=== PATIENT | female | born 1985 | race Caucasian/White ===

== ENCOUNTER 2017-12-12 10:01 | Emergency (ER) | payer OTHER ==
[~2017-12-12] VITALS: Ht 157.5 cm; Wt 52.2 kg
[~2017-12-12 10:01] MED LIST: BACL10 PO; CITA20 PO; CLIN300 PO; HYDACE5 PO; HYDPAM25 PO; HYDR1TAB94 PO; IBUP600 PO; LISI5 PO; METPHE20 PO; METPHE20ER PO; MULVITMINE; NAPR500 PO; OLOP.1OPSO OS; ORTHOEVRA; RXCLIN PO; Strattera80 MG PO
== END 2017-12-12 11:20 | disposition home or self-care (01) ==
LOC: ER 10:01
DX: M25.562 Pain in left knee (principal); F17.200 Nicotine dependence, unspecified, uncomplicated; Z88.0 Allergy status to penicillin; Z88.1 Allergy status to other antibiotic agents; Z88.8 Allergy status to other drugs, medicaments and biological substances
CPT/HCPCS: 73564; 99283

== ENCOUNTER 2019-07-10 07:54 | Day surgery (SDC) | payer OTHER ==
[~2019-07-10] VITALS: Ht 154.9 cm; Wt 51.4 kg
[~2019-07-10 07:54] MED LIST changes: +ALBU90OI INH; +Flovent 44 mc10.6 GM INH; +Singulair10 MG PO
--- NOTE | 2019-07-10 08:50 | NUR ---
PT ADMITTED TO [facility]. AGREES WITH PLANNED SURGERY. LUNG SOUNDS CLEAR. C/O INTERMITTENT RIGHT SHOULDER PAIN.
--- NOTE | 2019-07-10 12:30 | NUR ---
STERI STRIPS AND DRESSING TO ABDOMEN REMAIN CDI. PT CHANGED SHERRI PAD. SCANT AMOUNT OF DARK BURGUNDY DRAINAGE NOTED. Patient up to Ambulate independently. Gait steady. Discharge instructions reviewed with patient. Patient verbalizes understanding. Copy given to patient to take home. Patient States Post-Procedure ride home has been arranged. Discharged via wheelchair to private car for ride home. ALL BELONINGS RETURNED TO PATIENT.
== END 2019-07-10 22:48 | disposition home or self-care (01) ==
LOC: ORSCMMR 07:54 → ORD 10:00 → ORSCMMR 10:00
PROVIDERS: Obstetrics & Gynecology
PROC: 0UT74ZZ Resection of Bilateral Fallopian Tubes, Percutaneous Endoscopic Approach (ICD-10-PCS; principal; 2019-07-10 10:00)
DX: Z30.2 Encounter for sterilization (principal); Q50.5 Embryonic cyst of broad ligament; I10 Essential (primary) hypertension; J45.909 Unspecified asthma, uncomplicated; F17.210 Nicotine dependence, cigarettes, uncomplicated; Z79.899 Other long term (current) drug therapy
CPT/HCPCS: 88302; J1100; J1885; J2250; J2370; J2405; J2704; J3010; J7120

== ENCOUNTER → 2019-11-16 | Outpatient (CLI) | payer OTHER | END | disposition home or self-care (01) | LOC: LAB SHORT 12:08 → LAB EV 12:08 | DX: R82.90 Unspecified abnormal findings in urine (principal) | CPT/HCPCS: 87086 ==

== ENCOUNTER 2021-02-05 21:09 | Emergency (ER) | payer OTHER ==
[~2021-02-05] VITALS: Ht 157.5 cm; Wt 49.0 kg
[2021-02-05] MEDS ORDERED: HYDR1TAB94 PO (21:44)
[2021-02-05] MEDS ORDERED: Silvadene20 GM TOP (21:44)
== END 2021-02-05 22:15 | disposition home or self-care (01) ==
LOC: ER 21:09
DX: T22.211A Burn of second degree of right forearm, initial encounter (principal); T31.0 Burns involving less than 10% of body surface; F17.200 Nicotine dependence, unspecified, uncomplicated; Z88.0 Allergy status to penicillin; Z88.8 Allergy status to other drugs, medicaments and biological substances; Z79.899 Other long term (current) drug therapy
CPT/HCPCS: 90471; 90714; 99282; A9270

== ENCOUNTER 2021-07-14 08:57 | Emergency (ER) | payer OTHER ==
[~2021-07-14] VITALS: Ht 157.5 cm; Wt 49.0 kg
[~2021-07-14 08:57] MED LIST changes: +Silvadene20 GM TOP
[2021-07-14] MEDS ORDERED: CATAPRES0.1 MG PO (09:33)
[2021-07-14] MEDS ORDERED: HYDCHL25 (09:33)
[2021-07-14] MEDS ORDERED: Norco 5-325 Ta1 EACH PO (11:01)
== END 2021-07-14 11:08 | disposition home or self-care (01) ==
LOC: ER 08:57
DX: S20.211A Contusion of right front wall of thorax, initial encounter (principal); I10 Essential (primary) hypertension; F17.210 Nicotine dependence, cigarettes, uncomplicated; Z88.0 Allergy status to penicillin; Z88.1 Allergy status to other antibiotic agents; W50.1XXA Accidental kick by another person, initial encounter
CPT/HCPCS: 71101; 99283-25; A9270

== ENCOUNTER 2023-10-30 16:05 | Emergency (ER) | payer OTHER ==
[~2023-10-30] VITALS: Ht 157.5 cm; Wt 50.8 kg
[~2023-10-30 16:05] MED LIST changes: +AMIL5 PO; +Acetaminophen650 M1 PO; +CATAPRES0.1 MG PO; +FOLI1 PO; +HYDCHL25; +LEVO T PO; +LEVO750 PO; +LOSA50 PO; +MAGNESIUM OXID500 MG PO; +MULVITA PO; +Norco 5-325 Ta1 EACH PO
[2023-10-30 16:15] VITALS: BP 164/113
[2023-10-30] MEDS ORDERED: Cephalexin Monohydrate 500 MG Cap PO ONE (17:35)
[2023-10-30] MEDS ORDERED: CEPH500 PO (17:39)
== END 2023-10-30 17:50 | disposition home or self-care (01) ==
LOC: ER 16:05
DX: N61.0 Mastitis without abscess (principal); I10 Essential (primary) hypertension; F17.210 Nicotine dependence, cigarettes, uncomplicated
CPT/HCPCS: 76642; 99283-25; A9270

== ENCOUNTER 2025-08-23 16:54 | Emergency (ER) | payer OTHER ==
[~2025-08-23] VITALS: Ht 157.5 cm; Wt 51.7 kg
[~2025-08-23 16:54] MED LIST changes: +CEPH500 PO
[2025-08-23 17:20] LABS: BASOPHILS ABSOLUTE AUTO 0.08 K/mm3 (0.00-0.23); BASOPHILS PERCENT AUTO 1 % (0-2); EOSINOPHILS ABSOLUTE AUTO 0.06 K/mm3 (0.00-0.68); EOSINOPHILS PERCENT AUTO 1 % (0-6); Hematocrit 35.2 % (33.0-51.0); Hemoglobin 12.1 g/dL (11.5-16.0); IMMATURE GRAN ABSOLUTE AUTO 0.01 K/mm3 (0.00-0.10); IMMATURE GRAN PERCENT AUTO 0 % (0-1); LYMPHOCYTES ABSOLUTE AUTO 2.27 K/mm3 (0.84-5.20); LYMPHOCYTES PERCENT AUTO 30 % (21-46); MONOCYTES ABSOLUTE AUTO 0.67 K/mm3 (0.16-1.47); MONOCYTES PERCENT AUTO 9 % (4-13); Mean Corpuscular HGB Conc 34.4 g/dL (31.5-36.5); Mean Corpuscular Volume 94 fL (80-100); NEUTROPHILS ABSOLUTE AUTO 4.42 K/mm3 (1.96-9.15); NEUTROPHILS PERCENT AUTO 59 % (41-73); NRBC ABSOLUTE 0.00 K/mm3 (0.00-0.02); NRBC Auto 0.0 /100 WBC (0.0-0.2); Platelet Count 188 K/mm3 (150-400); RDW Coefficient Variation 13.8 % (11.7-14.2); RDW Standard Deviation 46.9 fL (35.1-46.3)
[2025-08-23 17:42] LABS: Alanine Aminotransfer (ALT/SGP 29.0 U/L (12-78); Albumin, Blood 3.6 g/dL (3.4-5.0); Albumin/Globulin Ratio 1.0 (0.8-1.8); Anion Gap 14.0 mmol/L (3-11); Aspartate Aminotrans (AST/SGOT 66.0 U/L (12-37); Bilirubin, Total 0.6 mg/dL (0.1-1.0); Blood Urea Nitrogen 7.0 mg/dL (8-24); CO2, Blood 19.0 mmol/L (21-32); Calcium, Blood 8.1 mg/dL (8.5-10.1); Chloride, Blood 105.0 mmol/L (98-108); Creatinine, Blood 0.65 mg/dL (0.40-1.00); Globulin, Blood 3.5 g/dL (2.2-4.0); Glucose, Blood 97.0 mg/dL (70-99); Magnesium, Blood 1.2 mg/dL (1.6-2.4); Potassium, Blood 2.7 mmol/L (3.5-5.5); Sodium, Blood 135.0 mmol/L (136-145); Total Protein, Blood 7.1 g/dL (6.4-8.2)
[2025-08-23] MEDS ORDERED: NS 1,000 ML IV SCH (18:25)
[2025-08-23] MEDS ORDERED: Magnesium Sulf 2 GM/Water 50ML 50 ML IV ONE (18:25)
[2025-08-23] MEDS ORDERED: CALCIUM GLUC IN NACL, ISO-OSM 50 ML IV ONE ×2 (18:30→21:10)
[2025-08-23] MEDS ORDERED: NS 1,000 ML IV ONE (23:23)
[2025-08-24] MEDS ORDERED: K-TAB ER20 ME1 PO ×2 (01:10→02:47)
[2025-08-24 02:41] VITALS: BP 161/110
== END 2025-08-24 02:41 | disposition home or self-care (01) ==
LOC: ER 16:54
PROVIDERS: Emergency Medicine
DX: E87.6 Hypokalemia (principal); E83.42 Hypomagnesemia; E83.51 Hypocalcemia; I10 Essential (primary) hypertension; Z88.0 Allergy status to penicillin; Z79.899 Other long term (current) drug therapy; F17.210 Nicotine dependence, cigarettes, uncomplicated
CPT/HCPCS: 80053; 83735; 85025; 93005; 93010; 96365; 96366; 96368; 96375; 99284-25; A9270; J0612; J3475; J3480; J7030; J7050